=== PATIENT | male | born 1965 | race Caucasian/White ===

== ENCOUNTER 2016-02-16 11:52 | Outpatient (CLI) | payer OTHER ==
[~2016-02-16 11:52] MED LIST: ACETAMINOPHEN TAB 650MG DOSE (2X325MG) PO ONE; BACL10TA2 PO; BENA25CA2 PO; CIPR500T89 PO; ENTO3CAP5 PO; FLAG500T PO; GILE1CAP PO; IMOD2TAB16 PO; IMUR50TA PO; MULTCAP PO; PENT500C PO; PROBCAP4 PO; SIME180C PO; TYLE650T30 PO; VIAG100T PO; VITA100037 PO; diphenhydrAMINE 25 MG CAP PO ONE; diphenhydrAMINE INJ 50MG/ML VIAL (J1200) IV PRN
[2016-02-16] MEDS ORDERED: HYDROCORTISONE 100 MG/2 ML VIAL (J1720) IV ONE (12:00)
[2016-02-16] MEDS ORDERED: VEDOLIZUMAB 300 MG in NS 250 ML IV ONE (12:00)
[2016-02-16] MEDS ORDERED: LORATADINE 10 MG TAB PO ONE (12:00)
[2016-02-16] MEDS ORDERED: ACETAMINOPHEN 325 MG TAB PO ONE (12:00)
== END 2016-02-16 13:15 | disposition home or self-care (01) ==
LOC: M INFU 11:52
PROVIDERS: ATTEND Internal Medicine
DX: K50.90 Crohn's disease, unspecified, without complications (principal)
CPT/HCPCS: 96413; J1720; J3380

== ENCOUNTER → 2016-03-30 | Outpatient (CLI) | payer OTHER ==
[~2016-03-30] MED LIST changes: -ACETAMINOPHEN TAB 650MG DOSE (2X325MG) PO ONE; -diphenhydrAMINE 25 MG CAP PO ONE; -diphenhydrAMINE INJ 50MG/ML VIAL (J1200) IV PRN
[2016-03-30 15:58] LABS: BASO % 0.3 % (0.0-1.0); EOS % 1.1 % (0.0-3.0); LARGE UNSTAINED CELL # 0.1 K/mm3 (0.0-0.4); LYMPH # 1.2 K/mm3 (1.5-4.5); MEAN CORPUSCULAR HEMOGLOBIN 32.6 pg (27.0-33.0); MEAN CORPUSCULAR VOLUME 95.9 fl (80.0-96.0); MONO # 0.4 K/mm3 (0.0-0.8); MONO % 7.8 % (0.0-5.0); NEUTROPHILS % 64.9 % (36.0-66.0); PLATELET COUNT, AUTOMATED 229 k/mm3 (150-450); RED CELL DISTRIBUTION WIDTH 13.3 % (11.5-14.5); WHITE BLOOD COUNT 4.7 K/mm3 (4.0-10.0)
[2016-03-30 16:18] LABS: ALBUMIN 4.1 GM/DL (3.2-5.2); ALBUMIN/GLOBULIN RATIO 1.37 (1.00-1.93); ALKALINE PHOSPHATASE 73 U/L (45-117); ALT/SGPT 30 U/L (12-78); ANION GAP 6 MEQ/L (8-16); AST/SGOT 18 U/L (15-37); BILIRUBIN,TOTAL 0.4 MG/DL (0.2-1.0); BLOOD UREA NITROGEN 16 MG/DL (7-18); CALCIUM LEVEL 8.8 MG/DL (8.5-10.1); CARBON DIOXIDE LEVEL 31 MEQ/L (21-32); CHLORIDE LEVEL 104 MEQ/L (98-107); CREATININE FOR GFR 0.89 MG/DL (0.70-1.30); GLOMERULAR FILTRATION RATE > 60.0 (>60); GLUCOSE, FASTING 94 MG/DL (70-105); POTASSIUM SERUM 4.8 MEQ/L (3.5-5.1); SODIUM LEVEL 141 MEQ/L (136-145); TOTAL PROTEIN 7.1 GM/DL (6.4-8.2)
== END ==
LOC: M WUC 13:31
PROVIDERS: ATTEND Physician Assistant
DX: K50.919 Crohn's disease, unspecified, with unspecified complications (principal)

== ENCOUNTER 2016-04-12 10:40 | Outpatient (CLI) | payer OTHER ==
[~2016-04-12] VITALS: Ht 188 cm; Wt 84.8 kg
[2016-04-12] MEDS ORDERED: diphenhydrAMINE INJ 50MG/ML VIAL (J1200) IV ONE (10:45)
[2016-04-12] MEDS ORDERED: LORATADINE 10 MG TAB PO ONE (10:45)
[2016-04-12] MEDS ORDERED: HYDROCORTISONE 100 MG/2 ML VIAL (J1720) IV ONE (10:45)
[2016-04-12] MEDS ORDERED: ACETAMINOPHEN TAB 650MG DOSE (2X325MG) PO ONE (11:00)
[2016-04-12] MEDS ORDERED: VEDOLIZUMAB 300 MG in NS 250 ML IV ONE (11:00)
== END 2016-04-12 12:10 | disposition home or self-care (01) ==
LOC: M INFU 10:40
PROVIDERS: ATTEND General Practice
DX: K50.90 Crohn's disease, unspecified, without complications (principal); Z79.899 Other long term (current) drug therapy
CPT/HCPCS: 96413; J1720; J3380

== ENCOUNTER 2016-06-07 08:18 | Outpatient (CLI) | payer OTHER ==
[~2016-06-07] VITALS: Ht 188 cm; Wt 84.8 kg
[2016-06-07] MEDS ORDERED: diphenhydrAMINE INJ 50MG/ML VIAL (J1200) IV PRN (08:30)
[2016-06-07] MEDS ORDERED: LORATADINE 10 MG TAB PO ONE (08:30)
[2016-06-07] MEDS ORDERED: VEDOLIZUMAB 300 MG in NS 250 ML IV ONE (08:30)
[2016-06-07] MEDS ORDERED: HYDROCORTISONE 100 MG/2 ML VIAL (J1720) IV ONE (08:30)
[2016-06-07] MEDS ORDERED: ACETAMINOPHEN 325 MG TAB PO ONE (08:30)
== END 2016-06-07 09:50 | disposition home or self-care (01) ==
LOC: M INFU 08:18
PROVIDERS: ATTEND Internal Medicine
DX: K50.90 Crohn's disease, unspecified, without complications (principal); Z79.899 Other long term (current) drug therapy
CPT/HCPCS: 36415; 82306; 96366; 96413; J1720; J3380

== ENCOUNTER → 2016-06-26 | Outpatient (CLI) | payer OTHER ==
[2016-06-26 16:47] LABS: BASO % 0.2 % (0.0-1.0); EOS # 0.1 K/mm3 (0.0-0.50); EOS % 1.8 % (0.0-3.0); LARGE UNSTAINED CELL # 0.2 K/mm3 (0.0-0.4); LARGE UNSTAINED CELL % 3.6 % (0.0-4.0); LYMPH # 1.1 K/mm3 (1.5-4.5); LYMPH % 22.7 % (24.0-44.0); MEAN CORPUSCULAR HEMOGLOBIN 33.1 pg (27.0-33.0); MEAN CORPUSCULAR HGB CONC 34.4 g/dl (32.0-36.5); MEAN CORPUSCULAR VOLUME 96.2 fl (80.0-96.0); MONO # 0.3 K/mm3 (0.0-0.8); MONO % 5.7 % (0.0-5.0); NEUTROPHILS # 3.2 K/mm3 (1.8-7.7); PLATELET COUNT, AUTOMATED 256 k/mm3 (150-450); RED CELL DISTRIBUTION WIDTH 13.3 % (11.5-14.5); WHITE BLOOD COUNT 4.8 K/mm3 (4.0-10.0)
== END ==
LOC: M WUC 13:25
PROVIDERS: ATTEND Physician Assistant
DX: K50.919 Crohn's disease, unspecified, with unspecified complications (principal)

== ENCOUNTER 2016-08-02 08:17 | Outpatient (CLI) | payer OTHER ==
[~2016-08-02 08:17] MED LIST changes: +ACETAMINOPHEN 325 MG TAB PO ONE; +CIPR-249 PO; -CIPR500T89 PO; +HYDROCORTISONE 100 MG/2 ML VIAL (J1720) IV ONE; -IMUR50TA PO; +IMUR50TA6 PO; +LORATADINE 10 MG TAB PO ONE; +VEDOLIZUMAB 300 MG in NS 250 ML IV ONE; -VITA100037 PO; +VITA100067 PO; +diphenhydrAMINE INJ 50MG/ML VIAL (J1200) IV PRN
== END 2016-08-02 09:30 | disposition home or self-care (01) ==
LOC: M INFU 08:17
PROVIDERS: ATTEND Internal Medicine
DX: K50.90 Crohn's disease, unspecified, without complications (principal); Z85.828 Personal history of other malignant neoplasm of skin; G35 Multiple sclerosis; Z91.048 Other nonmedicinal substance allergy status
CPT/HCPCS: 96413; J1720; J3380

== ENCOUNTER 2016-09-27 10:28 | Outpatient (CLI) | payer OTHER ==
[~2016-09-27] VITALS: Ht 188 cm; Wt 84.8 kg
[~2016-09-27 10:28] MED LIST changes: +diphenhydrAMINE 25 MG CAP PO PRN; -diphenhydrAMINE INJ 50MG/ML VIAL (J1200) IV PRN
== END 2016-09-27 11:30 | disposition home or self-care (01) ==
LOC: M INFU 10:28
PROVIDERS: ATTEND Internal Medicine
DX: K50.90 Crohn's disease, unspecified, without complications (principal); Z85.828 Personal history of other malignant neoplasm of skin; Z91.010 Allergy to peanuts; Z79.899 Other long term (current) drug therapy
CPT/HCPCS: 96413; J1720; J3380

== ENCOUNTER 2016-11-22 08:49 | Outpatient (CLI) | payer OTHER ==
[~2016-11-22] VITALS: Ht 188 cm; Wt 84.8 kg
[~2016-11-22 08:49] MED LIST changes: -ACETAMINOPHEN 325 MG TAB PO ONE; -HYDROCORTISONE 100 MG/2 ML VIAL (J1720) IV ONE; -LORATADINE 10 MG TAB PO ONE; -VEDOLIZUMAB 300 MG in NS 250 ML IV ONE; -diphenhydrAMINE 25 MG CAP PO PRN
[2016-11-22] MEDS: HYDROCORTISONE 100 MG/2 ML VIAL (J1720) IV ONE (09:17)
[2016-11-22] MEDS: ACETAMINOPHEN 325 MG TAB PO ONE (09:17)
[2016-11-22] MEDS: LORATADINE 10 MG TAB PO ONE (09:20)
[2016-11-22] MEDS: diphenhydrAMINE 25 MG CAP PO ONE (09:20)
[2016-11-22] MEDS: VEDOLIZUMAB 300 MG in NS 250 ML IV ONE (09:39)
== END 2016-11-22 10:15 | disposition home or self-care (01) ==
LOC: M INFU 08:49
PROVIDERS: ATTEND Internal Medicine
DX: K50.90 Crohn's disease, unspecified, without complications (principal); Z85.828 Personal history of other malignant neoplasm of skin; Z91.010 Allergy to peanuts; Z79.899 Other long term (current) drug therapy
CPT/HCPCS: 96413; J1720; J3380

== ENCOUNTER 2017-01-17 08:41 | Outpatient (CLI) | payer OTHER ==
[2017-01-17] MEDS ORDERED: VEDOLIZUMAB 300 MG in NS 250 ML IV ONE (08:45)
[2017-01-17] MEDS ORDERED: diphenhydrAMINE 25 MG CAP PO ONE (08:45)
[2017-01-17] MEDS ORDERED: ACETAMINOPHEN 325 MG TAB PO ONE (08:45)
[2017-01-17] MEDS ORDERED: HYDROCORTISONE 100 MG/2 ML VIAL (J1720) IV ONE (09:00)
[2017-01-17] MEDS ORDERED: LORATADINE 10 MG TAB PO ONE (09:00)
== END 2017-01-17 10:15 | disposition home or self-care (01) ==
LOC: M INFU 08:41
PROVIDERS: ATTEND Internal Medicine
DX: K50.90 Crohn's disease, unspecified, without complications (principal); G35 Multiple sclerosis; Z85.828 Personal history of other malignant neoplasm of skin; Z91.018 Allergy to other foods; Z79.899 Other long term (current) drug therapy
CPT/HCPCS: 96365; J1720; J3380

== ENCOUNTER 2017-03-14 08:43 | Outpatient (CLI) | payer OTHER ==
[2017-03-14] MEDS ORDERED: diphenhydrAMINE 25 MG CAP PO ×2 (08:45)
[2017-03-14] MEDS ORDERED: LORATADINE 10 MG TAB PO ×2 (08:45)
[2017-03-14] MEDS: ACETAMINOPHEN 325 MG TAB PO ×2 (09:15)
[2017-03-14] MEDS: VEDOLIZUMAB 300 MG in NS 250 ML IV (09:15)
[2017-03-14] MEDS: HYDROCORTISONE 100 MG/2 ML VIAL (J1720) IV ×2 (09:15)
[2017-03-14 09:20] LABS: BASO % 0.2 % (0.0-1.0); EOS # 0.1 10^3/uL (0.0-0.50); HEMOGLOBIN 13.8 g/dl (14.0-18.0); IMMATURE GRANULOCYTE % 0.4 % (0-0); LYMPH # 0.8 10^3/uL (1.5-4.5); LYMPH % 17.2 % (24.0-44.0); MEAN CORPUSCULAR HEMOGLOBIN 31.4 pg (27.0-33.0); MEAN CORPUSCULAR HGB CONC 34.5 g/dl (32.0-36.5); MEAN CORPUSCULAR VOLUME 91.1 fl (80.0-96.0); MONO # 0.3 10^3/uL (0.0-0.8); MONO % 6.3 % (0.0-5.0); NEUTROPHILS # 3.6 10^3/uL (1.8-7.7); NEUTROPHILS % 74.9 % (36.0-66.0); PLATELET COUNT, AUTOMATED 236 10^3/uL (150-450); RED BLOOD COUNT 4.39 10^6/uL (4.30-6.10); RED CELL DISTRIBUTION WIDTH 12.8 % (11.5-14.5); WHITE BLOOD COUNT 4.8 10^3/uL (4.0-10.0)
[2017-03-14 11:05] LABS: ALBUMIN 4.1 GM/DL (3.2-5.2); ALBUMIN/GLOBULIN RATIO 1.32 (1.00-1.93); ALKALINE PHOSPHATASE 60 U/L (45-117); ALT/SGPT 21 U/L (12-78); ANION GAP 5 MEQ/L (8-16); AST/SGOT 12 U/L (7-37); BILIRUBIN,TOTAL 0.3 MG/DL (0.2-1.0); BLOOD UREA NITROGEN 20 MG/DL (7-18); C REACTIVE PROTEIN QUANTITATIV < 0.30 MG/DL (0.00-0.30); CALCIUM LEVEL 8.5 MG/DL (8.5-10.1); CARBON DIOXIDE LEVEL 31 MEQ/L (21-32); CHLORIDE LEVEL 105 MEQ/L (98-107); GLOMERULAR FILTRATION RATE > 60.0 (>56); GLUCOSE, FASTING 89 MG/DL (70-100); POTASSIUM SERUM 4.7 MEQ/L (3.5-5.1); SODIUM LEVEL 141 MEQ/L (136-145); TOTAL PROTEIN 7.2 GM/DL (6.4-8.2)
== END 2017-03-14 10:20 | disposition home or self-care (01) ==
LOC: M INFU 08:43
DX: K50.90 Crohn's disease, unspecified, without complications (principal); Z79.899 Other long term (current) drug therapy
CPT/HCPCS: J1720

== ENCOUNTER 2017-07-04 08:46 | Outpatient (CLI) | payer OTHER ==
[2017-07-04] MEDS: LORATADINE 10 MG TAB PO (09:00)
[2017-07-04] MEDS: ACETAMINOPHEN 325 MG TAB PO (09:19)
[2017-07-04] MEDS: HYDROCORTISONE 100 MG/2 ML VIAL (J1720) IV (09:20)
[2017-07-04] MEDS: diphenhydrAMINE 25 MG CAP PO (09:23)
[2017-07-04] MEDS: VEDOLIZUMAB 300 MG in NS 250 ML IV (09:27)
== END 2017-07-04 10:00 | disposition home or self-care (01) ==
LOC: M INFU 08:46
DX: K50.90 Crohn's disease, unspecified, without complications (principal); G35 Multiple sclerosis; Z79.899 Other long term (current) drug therapy; Z91.018 Allergy to other foods; J30.81 Allergic rhinitis due to animal (cat) (dog) hair and dander
CPT/HCPCS: J1720

== ENCOUNTER 2017-08-29 08:19 | Outpatient (CLI) | payer OTHER ==
[2017-08-29] MEDS: diphenhydrAMINE 25 MG CAP PO ×3 (08:41→10:10)
[2017-08-29] MEDS: HYDROCORTISONE 100 MG/2 ML VIAL (J1720) IV (08:42)
[2017-08-29] MEDS: ACETAMINOPHEN 325 MG TAB PO (08:46)
[2017-08-29] MEDS: VEDOLIZUMAB 300 MG in NS 250 ML IV (08:48)
[2017-08-29] MEDS: LORATADINE 10 MG TAB PO (08:58)
== END 2017-08-29 09:25 | disposition home or self-care (01) ==
LOC: M INFU 08:19
DX: K50.90 Crohn's disease, unspecified, without complications (principal); Z79.899 Other long term (current) drug therapy; Z91.018 Allergy to other foods; J30.81 Allergic rhinitis due to animal (cat) (dog) hair and dander; Z85.828 Personal history of other malignant neoplasm of skin
CPT/HCPCS: J1720

== ENCOUNTER → 2017-09-06 | Outpatient (REF) | payer OTHER | LOC: M LAB REF 18:44 | DX: I78.1 Nevus, non-neoplastic (principal) ==

== ENCOUNTER 2017-10-24 08:42 | Outpatient (CLI) | payer OTHER ==
[2017-10-24] MEDS: LORATADINE 10 MG TAB PO (08:45)
[2017-10-24] MEDS: HYDROCORTISONE 100 MG/2 ML VIAL (J1720) IV (09:00)
[2017-10-24] MEDS: diphenhydrAMINE 25 MG CAP PO (09:00)
[2017-10-24] MEDS: ACETAMINOPHEN 325 MG TAB PO (09:00)
[2017-10-24] MEDS: VEDOLIZUMAB 300 MG in NS 250 ML IV (09:24)
[2017-10-24 10:09] LABS: BASO % 0.2 % (0.0-1.0); EOS % 0.6 % (0.0-3.0); HEMATOCRIT 41.1 % (42.0-52.0); IMMATURE GRANULOCYTE % 0.4 % (0-3.0); LYMPH # 0.6 10^3/uL (1.5-4.5); MEAN CORPUSCULAR HGB CONC 34.1 g/dl (32.0-36.5); MEAN CORPUSCULAR VOLUME 91.1 fl (80.0-96.0); MONO # 0.3 10^3/uL (0.0-0.8); NEUTROPHILS # 4.3 10^3/uL (1.8-7.7); NEUTROPHILS % 80.8 % (36.0-66.0); PLATELET COUNT, AUTOMATED 248 10^3/uL (150-450); RED BLOOD COUNT 4.51 10^6/uL (4.30-6.10); RED CELL DISTRIBUTION WIDTH 12.6 % (11.5-14.5); WHITE BLOOD COUNT 5.3 10^3/uL (4.0-10.0)
[2017-10-24 10:40] LABS: ALBUMIN 4.2 GM/DL (3.2-5.2); ALKALINE PHOSPHATASE 65 U/L (45-117); ALT/SGPT 20 U/L (12-78); ANION GAP 8 MEQ/L (8-16); AST/SGOT 11 U/L (7-37); BILIRUBIN,TOTAL 0.4 MG/DL (0.2-1.0); BLOOD UREA NITROGEN 10 MG/DL (7-18); C REACTIVE PROTEIN QUANTITATIV < 0.30 MG/DL (0.00-0.30); CALCIUM LEVEL 8.9 MG/DL (8.5-10.1); CARBON DIOXIDE LEVEL 28 MEQ/L (21-32); CHLORIDE LEVEL 106 MEQ/L (98-107); CREATININE FOR GFR 0.88 MG/DL (0.70-1.30); GLOMERULAR FILTRATION RATE > 60.0 (>56); GLUCOSE, FASTING 111 MG/DL (70-100); POTASSIUM SERUM 4.9 MEQ/L (3.5-5.1); SODIUM LEVEL 142 MEQ/L (136-145); TOTAL PROTEIN 7.2 GM/DL (6.4-8.2)
== END 2017-10-24 10:05 | disposition home or self-care (01) ==
LOC: M INFU 08:42
DX: K50.90 Crohn's disease, unspecified, without complications (principal); Z79.899 Other long term (current) drug therapy; Z91.018 Allergy to other foods
CPT/HCPCS: J1720

== ENCOUNTER 2017-12-19 08:40 | Outpatient (CLI) | payer OTHER ==
[2017-12-19] MEDS: HYDROCORTISONE 100 MG/2 ML VIAL (J1720) IV (09:17)
[2017-12-19] MEDS: LORATADINE 10 MG TAB PO (09:17)
[2017-12-19] MEDS: ACETAMINOPHEN 325 MG TAB PO (09:17)
[2017-12-19] MEDS: VEDOLIZUMAB 300 MG in NS 250 ML IV (09:32)
[2017-12-19] MEDS: diphenhydrAMINE 25 MG CAP PO (09:33)
== END 2017-12-19 10:20 | disposition home or self-care (01) ==
LOC: M INFU 08:40
DX: K50.90 Crohn's disease, unspecified, without complications (principal); Z91.018 Allergy to other foods
CPT/HCPCS: J1720

== ENCOUNTER 2018-02-13 08:47 | Outpatient (CLI) | payer OTHER ==
[~2018-02-13] VITALS: Ht 188 cm; Wt 84.8 kg
[~2018-02-13 08:47] MED LIST changes: -IMUR50TA6 PO; +IMUR50TA7 PO
[2018-02-13 08:50] VITALS: BP 130/66
[2018-02-13] MEDS ORDERED: HYDROCORTISONE 100 MG/2 ML VIAL (J1720) IV ONE (09:00)
[2018-02-13] MEDS ORDERED: diphenhydrAMINE 25 MG CAP PO PRN (09:00)
[2018-02-13] MEDS ORDERED: VEDOLIZUMAB 300 MG in NS 250 ML IV ONE (09:00)
[2018-02-13] MEDS ORDERED: LORATADINE 10 MG TAB PO ONE (09:00)
[2018-02-13] MEDS ORDERED: ACETAMINOPHEN 325 MG TAB PO ONE (09:00)
[2018-02-13 09:33] LABS: BASO % 0.2 % (0.0-1.0); EOS % 0.6 % (0.0-3.0); HEMATOCRIT 38.2 % (42.0-52.0); HEMOGLOBIN 13.2 g/dl (13.5-17.5); LYMPH # 0.9 10^3/uL (1.5-4.5); LYMPH % 18.6 % (24.0-44.0); MEAN CORPUSCULAR HEMOGLOBIN 31.1 pg (27.0-33.0); MEAN CORPUSCULAR HGB CONC 34.6 g/dl (32.0-36.5); MEAN CORPUSCULAR VOLUME 89.9 fl (80.0-96.0); MONO # 0.4 10^3/uL (0.0-0.8); MONO % 8.3 % (0.0-5.0); NEUTROPHILS # 3.4 10^3/uL (1.8-7.7); NEUTROPHILS % 71.9 % (36.0-66.0); PLATELET COUNT, AUTOMATED 265 10^3/uL (150-450); RED BLOOD COUNT 4.25 10^6/uL (4.30-6.10); WHITE BLOOD COUNT 4.7 10^3/uL (4.0-10.0)
[2018-02-13 09:59] LABS: ALBUMIN 3.9 GM/DL (3.2-5.2); ALT/SGPT 21 U/L (12-78); BILIRUBIN,TOTAL 0.4 MG/DL (0.2-1.0); BLOOD UREA NITROGEN 19 MG/DL (7-18); C REACTIVE PROTEIN QUANTITATIV < 0.30 MG/DL (0.00-0.30); CALCIUM LEVEL 8.6 MG/DL (8.5-10.1); CARBON DIOXIDE LEVEL 24 MEQ/L (21-32); CHLORIDE LEVEL 108 MEQ/L (98-107); CREATININE FOR GFR 0.86 MG/DL (0.70-1.30); GLOMERULAR FILTRATION RATE > 60.0 (>56); GLUCOSE, FASTING 112 MG/DL (70-100); POTASSIUM SERUM 4.4 MEQ/L (3.5-5.1); SODIUM LEVEL 140 MEQ/L (136-145); TOTAL PROTEIN 6.9 GM/DL (6.4-8.2)
[2018-02-13 10:25] VITALS: BP 121/66
== END 2018-02-13 10:25 | disposition home or self-care (01) ==
LOC: M INFU 08:47
PROVIDERS: ATTEND Internal Medicine
DX: K50.90 Crohn's disease, unspecified, without complications (principal); Z91.018 Allergy to other foods
CPT/HCPCS: 80053; 85025; 86140; 96365; 96375; J1720; J3380

== ENCOUNTER 2018-04-10 08:49 | Outpatient (CLI) | payer OTHER ==
[~2018-04-10] VITALS: Ht 188 cm; Wt 84.8 kg
[~2018-04-10 08:49] MED LIST changes: +ACETAMINOPHEN 325 MG TAB PO ONE; +HYDROCORTISONE 100 MG/2 ML VIAL (J1720) IV ONE; +LORATADINE 10 MG TAB PO ONE; +VEDOLIZUMAB 300 MG in NS 250 ML IV ONE; +diphenhydrAMINE 25 MG CAP PO ONE
[2018-04-10 08:55] VITALS: BP 121/58
[2018-04-10 10:15] VITALS: BP 130/65
== END 2018-04-10 10:15 | disposition home or self-care (01) ==
LOC: M INFU 08:49
PROVIDERS: ATTEND Internal Medicine
DX: K50.90 Crohn's disease, unspecified, without complications (principal); Z91.018 Allergy to other foods
CPT/HCPCS: 96365; 96375; J1720; J3380

== ENCOUNTER 2018-06-05 08:44 | Outpatient (CLI) | payer OTHER ==
[~2018-06-05] VITALS: Ht 188 cm; Wt 84.8 kg
[~2018-06-05 08:44] MED LIST changes: -ACETAMINOPHEN 325 MG TAB PO ONE; -HYDROCORTISONE 100 MG/2 ML VIAL (J1720) IV ONE; +IMUR50TA10 PO; -IMUR50TA7 PO; -LORATADINE 10 MG TAB PO ONE; -VEDOLIZUMAB 300 MG in NS 250 ML IV ONE; -diphenhydrAMINE 25 MG CAP PO ONE
[2018-06-05] MEDS ORDERED: VEDOLIZUMAB 300 MG in NS 250 ML IV ONE (08:45)
[2018-06-05] MEDS ORDERED: ACETAMINOPHEN 325 MG TAB PO ONE (08:45)
[2018-06-05 08:50] VITALS: BP 122/72
[2018-06-05] MEDS ORDERED: HYDROCORTISONE 100 MG/2 ML VIAL (J1720) IV ONE (09:00)
[2018-06-05] MEDS ORDERED: LORATADINE 10 MG TAB PO ONE (09:00)
[2018-06-05] MEDS ORDERED: diphenhydrAMINE 25 MG CAP PO PRN (09:00)
[2018-06-05 10:20] VITALS: BP 121/68
--- NOTE | 2018-06-05 16:08 | CR.PDOC ---
General Date of Consultation: June 05, 2018 Consultation REASON FOR CONSULTATION/CHIEF COMPLAINT: Presented to [facility] for scheduled infusion of Entyvio at the infusion center HISTORY OF PRESENT ILLNESS: Patient is a 52-year-old male with a past medical history of multiple sclerosis and Crohns disease (Dx 2014 by Colonoscopy / Biopsy) who presented to the infusion center at the direction of his floatman from [facility] for infusion of Entyvio. Patient has been receiving this medication for the last 4 years at a frequency of every 8 weeks. He is reported that he has never experienced any problems in the past. Reports no allergies or any adverse reactions infusions. Patient denies headache, nausea, vomiting, chest pain, shortness of breath, palpitations, abdominal pain, constipation, diarrhea, discomfort with urination. Denies any fevers or chills in the last 2 weeks. Patient reports that his appetite is fine and denies any significant changes, weight. ALLERGIES: Please see below. HOME MEDICATIONS: Please see below. PAST MEDICAL HISTORY: Multiple sclerosis and Crohns disease (Dx 2014 by Colonoscopy / Biopsy) PAST SURGICAL HISTORY: Vasectomy Right knee surgery in 2017 Right shoulder surgery in 2016 FAMILY HISTORY: - Mother with history of breast cancer - Father with history of HTN SOCIAL HISTORY: - Denies the use of alcohol, tobacco or illicit drugs - Denies recent travel or sick contacts - Lives in [place] with and kids - Occupation; currently on disability REVIEW OF SYSTEMS: 10 point review systems complete, all negative otherwise stated in HPI PHYSICAL EXAMINATION: - Vitals: BP 122/72, HR 90, RR 16, Sat 99%RA, Temp 97.2F - General: Lying in bed, No acute distress, Speaking in full sentences, AAOx3 - HEENT: NC, AT, PERRLA, EOMI - CVS: RRR, +S1S2, - Murmurs / rubs / gallops - Lungs: Fair air entry bilaterally, Clear to auscultation, No wheezing / rales / rhonchi - Abdomen: Soft, Non-distended, Non-tender - Extremities: No lower extremity edema, No calf tenderness - Neuro: Moving all 4 extremities; right leg in brace - Skin: No visible rashes LABORATORY DATA: Please see below. ASSESSMENT/PLAN: Crohns disease (Dx 2014 by Colonoscopy / Biopsy) - Patient follows a floatman at [facility], [facility] [place] - Risks and benefits of infusion have been discussed by outpatient provider - I have again reiterated the risks and benefits with the patient - Patient agrees and accepts the risks - As per referring provider protocol and providing service for infusion center orders have been reviewed and continued - Continue with Entyvio infusion and pre-medications as per outpatient provider; orders have been reviewed Multiple sclerosis - Patient reports that he is not taking any medications for this at this time Continue care as per protocol as infusion center Vital Signs/I&O Vital Signs Date Time Temp Pulse Resp B/P (MAP) Pulse Ox O2 Delivery O2 Flow Rate FiO2 06/05/18 10:20 97.9 64 18 121/68 (85) 100 Allergies Coded Allergies: Nut Tree (Verified Allergy, Unknown, 12/21/15) Home Medications Scheduled Azathioprine (Imuran) 50 Mg Tab, 50 MG PO DAILY, (Reported) Lactobacillus Acidophilus (Probiotic) 1 Cap Cap, 1 CAP PO ASDIRECTED, (Reported) Multivitamin (Multivitamins) 1 Cap Cap, 1 CAP PO DAILY, (Reported) Vitamin D (Vitamin D) 1,000 Unit Cap, 1,000 UNIT PO DAILY, (Reported) Scheduled PRN Acetaminophen (Tylenol 8 Hour) 650 Mg Tab, 650 MG PO Q6HP PRN for PAIN / FEVER, (Reported) Baclofen (Baclofen) 10 Mg Tab, 10 MG PO TIDP PRN for SPASMS, (Reported) Sildenafil Citrate (Viagra) 100 Mg Tab, 100 MG PO PRN PRN for SEE LABEL COMMENTS, (Reported) NU STALEY MD June 05, 2018 16:08
== END 2018-06-05 10:20 | disposition home or self-care (01) ==
LOC: M INFU 08:44
PROVIDERS: ATTEND Internal Medicine
DX: K50.00 Crohn's disease of small intestine without complications (principal); G35 Multiple sclerosis
CPT/HCPCS: 96365; 96375; J1720; J3380

== ENCOUNTER 2018-07-31 08:36 | Outpatient (CLI) | payer OTHER ==
[~2018-07-31] VITALS: Ht 185.4 cm; Wt 84.8 kg
[2018-07-31 08:45] VITALS: BP 132/67
[2018-07-31] MEDS ORDERED: ACETAMINOPHEN 325 MG TAB PO ONE (08:45)
[2018-07-31] MEDS ORDERED: VEDOLIZUMAB 300 MG in NS 250 ML IV ONE (08:45)
[2018-07-31] MEDS ORDERED: diphenhydrAMINE 25 MG CAP PO PRN (08:45)
[2018-07-31] MEDS ORDERED: HYDROCORTISONE 100 MG/2 ML VIAL (J1720) IV ONE (08:45)
[2018-07-31] MEDS ORDERED: LORATADINE 10 MG TAB PO ONE (08:45)
[2018-07-31 09:28] LABS: BASO % 0.2 % (0.0-1.0); EOS % 0.4 % (0.0-3.0); HEMATOCRIT 41.2 % (42.0-52.0); HEMOGLOBIN 14.4 g/dl (13.5-17.5); LYMPH # 0.8 10^3/uL (1.5-4.5); LYMPH % 17.1 % (24.0-44.0); MEAN CORPUSCULAR HEMOGLOBIN 31.6 pg (27.0-33.0); MEAN CORPUSCULAR VOLUME 90.5 fl (80.0-96.0); MONO # 0.4 10^3/uL (0.0-0.8); MONO % 7.5 % (0.0-5.0); NEUTROPHILS # 3.6 10^3/uL (1.8-7.7); NEUTROPHILS % 74.4 % (36.0-66.0); PLATELET COUNT, AUTOMATED 271 10^3/uL (150-450); RED BLOOD COUNT 4.55 10^6/uL (4.30-6.10); WHITE BLOOD COUNT 4.8 10^3/uL (4.0-10.0)
[2018-07-31 09:54] LABS: ALBUMIN 3.8 GM/DL (3.2-5.2); ALT/SGPT 18 U/L (12-78); BILIRUBIN,TOTAL 0.4 MG/DL (0.2-1.0); BLOOD UREA NITROGEN 15 MG/DL (7-18); CALCIUM LEVEL 8.9 MG/DL (8.5-10.1); CARBON DIOXIDE LEVEL 28 MEQ/L (21-32); CHLORIDE LEVEL 107 MEQ/L (98-107); CHOLESTEROL LEVEL 169 MG/DL (<200); CHOLESTEROL RISK RATIO 2.449 (<5); CREATININE FOR GFR 0.98 MG/DL (0.70-1.30); GLOMERULAR FILTRATION RATE > 60.0 (>56); GLUCOSE, FASTING 114 MG/DL (70-100); HDL CHOLESTEROL 69 MG/DL (>40); LDL CHOLESTEROL 82 MG/DL (<100); NON-HDL-C 100 MG/DL; SODIUM LEVEL 141 MEQ/L (136-145); TOTAL PROTEIN 7.3 GM/DL (6.4-8.2); TRIGLYCERIDES LEVEL 91 MG/DL (<150)
[2018-07-31 10:00] VITALS: BP 112/58
[2018-07-31 10:18] LABS: TOTAL 25(OH) VITAMIN D 49.4 NG/ML (30.0-100.0)
== END 2018-07-31 10:00 | disposition home or self-care (01) ==
LOC: M INFU 08:36
PROVIDERS: ATTEND Physician Assistant
DX: K50.90 Crohn's disease, unspecified, without complications (principal); Z12.5 Encounter for screening for malignant neoplasm of prostate; Z13.220 Encounter for screening for lipoid disorders; K55.9 Vascular disorder of intestine, unspecified; G35 Multiple sclerosis
CPT/HCPCS: 36592; 80053; 80061; 82306; 85025; 96365; 96375; G0103; J1720; J3380

== ENCOUNTER 2018-08-28 16:17 | Outpatient (CLI) | payer OTHER ==
[~2018-08-28] VITALS: Ht 184.9 cm; Wt 84.8 kg
[2018-08-28 16:20] VITALS: BP 127/72
[2018-08-28] MEDS: methylPREDNISolone 1,000 MG, VIAL MATE ADAPTER 1 EACH in D5W 250 ML IV ONE (16:39)
[2018-08-28 17:50] VITALS: BP 131/72
== END 2018-08-28 17:50 | disposition home or self-care (01) ==
LOC: M INFU 16:17
PROVIDERS: ATTEND Psychiatry & Neurology Neurology
DX: G35 Multiple sclerosis (principal)
CPT/HCPCS: 96365; J2930

== ENCOUNTER 2018-08-29 15:48 | Outpatient (CLI) | payer OTHER ==
[~2018-08-29] VITALS: Ht 188 cm; Wt 89.8 kg
[2018-08-29 15:55] VITALS: BP 106/67
[2018-08-29] MEDS ORDERED: methylPREDNISolone 1,000 MG, VIAL MATE ADAPTER 1 EACH in D5W 250 ML IV ONE (16:00)
[2018-08-29 17:15] VITALS: BP 129/75
== END 2018-08-29 17:15 | disposition home or self-care (01) ==
LOC: M INFU 15:48
PROVIDERS: ATTEND Psychiatry & Neurology Neurology
DX: G35 Multiple sclerosis (principal)
CPT/HCPCS: 96365; J2930

== ENCOUNTER 2018-08-30 15:50 | Outpatient (CLI) | payer OTHER ==
[~2018-08-30] VITALS: Ht 185.4 cm; Wt 84.8 kg
[~2018-08-30 15:50] MED LIST changes: +methylPREDNISolone 1,000 MG, VIAL MATE ADAPTER 1 EACH in D5W 250 ML IV ONE
[2018-08-30 15:55] VITALS: BP 130/58
[2018-08-30] MEDS ORDERED: methylPREDNISolone 1,000 MG, VIAL MATE ADAPTER 1 EACH in D5W 250 ML IV ONE (16:00)
[2018-08-30 17:15] VITALS: BP_SYST 114; BP_SYST 130; BP_DIAS 58; BP_DIAS 71
== END 2018-08-30 17:15 | disposition home or self-care (01) ==
LOC: M INFU 15:50
PROVIDERS: ATTEND Psychiatry & Neurology Neurology
DX: G35 Multiple sclerosis (principal)
CPT/HCPCS: 96365; J2930

== ENCOUNTER 2018-09-25 08:42 | Outpatient (CLI) | payer OTHER ==
[~2018-09-25] VITALS: Ht 188 cm; Wt 84.8 kg
[~2018-09-25 08:42] MED LIST changes: -methylPREDNISolone 1,000 MG, VIAL MATE ADAPTER 1 EACH in D5W 250 ML IV ONE
[2018-09-25 08:45] VITALS: BP 132/61
[2018-09-25] MEDS: ACETAMINOPHEN 325 MG TAB PO ONE (09:04)
[2018-09-25] MEDS: LORATADINE 10 MG TAB PO ONE (09:04)
[2018-09-25] MEDS: HYDROCORTISONE 100 MG/2 ML VIAL (J1720) IV ONE (09:05)
[2018-09-25] MEDS: diphenhydrAMINE 25 MG CAP PO ONE (09:05)
[2018-09-25] MEDS: VEDOLIZUMAB 300 MG in NS 250 ML IV ONE (09:28)
[2018-09-25 10:10] VITALS: BP 123/68
== END 2018-09-25 14:15 | disposition home or self-care (01) ==
LOC: M INFU 08:42
PROVIDERS: ATTEND Physician Assistant
DX: K50.00 Crohn's disease of small intestine without complications (principal)
CPT/HCPCS: 96365; J1720; J3380

== ENCOUNTER 2018-11-20 08:38 | Outpatient (CLI) | payer OTHER ==
[~2018-11-20] VITALS: Ht 188 cm; Wt 84.8 kg
[2018-11-20 08:45] VITALS: BP 137/85
[2018-11-20] MEDS ORDERED: diphenhydrAMINE 25 MG CAP PO ONE (09:00)
[2018-11-20] MEDS ORDERED: VEDOLIZUMAB 300 MG in NS 250 ML IV ONE (10:00)
[2018-11-20] MEDS ORDERED: ACETAMINOPHEN TAB 650MG DOSE (2X325MG) PO ONE (10:00)
[2018-11-20] MEDS ORDERED: HYDROCORTISONE 100 MG/2 ML VIAL (J1720) IV ONE (10:00)
[2018-11-20] MEDS ORDERED: diphenhydrAMINE 12.5MG/5ML ELIXIR UDC PO PRN (10:00)
[2018-11-20] MEDS ORDERED: LORATADINE 10 MG TAB PO ONE (10:00)
[2018-11-20 10:05] VITALS: BP 138/84
== END 2018-11-20 10:05 | disposition home or self-care (01) ==
LOC: M INFU 08:38
PROVIDERS: ATTEND Physician Assistant
DX: K50.00 Crohn's disease of small intestine without complications (principal); Z91.018 Allergy to other foods
CPT/HCPCS: 96365; 96375; J1720; J3380

== ENCOUNTER → 2019-03-24 | Outpatient (REF) | payer OTHER | LOC: M LAB REF 16:48 | PROVIDERS: ATTEND Family Medicine | DX: L03.011 Cellulitis of right finger (principal) ==

== ENCOUNTER → 2019-03-27 | Outpatient (REF) | payer OTHER | LOC: M LAB REF 13:50 | PROVIDERS: ATTEND Family Medicine | DX: L03.011 Cellulitis of right finger (principal) ==

== ENCOUNTER → 2019-05-21 | Outpatient (REF) | payer OTHER ==
[2019-05-21 17:38] LABS: BASO % 0.8 % (0.0-1.0); EOS % 0.8 % (0.0-3.0); HEMATOCRIT 36.8 % (42.0-52.0); HEMOGLOBIN 12.2 g/dl (13.5-17.5); LYMPH # 0.8 10^3/uL (1.5-5.0); LYMPH % 15.8 % (24.0-44.0); MEAN CORPUSCULAR HEMOGLOBIN 31.3 pg (27.0-33.0); MEAN CORPUSCULAR HGB CONC 33.2 g/dl (32.0-36.5); MEAN CORPUSCULAR VOLUME 94.4 fl (80.0-96.0); MONO # 0.7 10^3/uL (0.0-0.8); MONO % 12.5 % (0.0-5.0); NEUTROPHILS # 3.7 10^3/uL (1.5-8.5); NEUTROPHILS % 69.3 % (36.0-66.0); PLATELET COUNT, AUTOMATED 295 10^3/uL (150-450); WHITE BLOOD COUNT 5.3 10^3/uL (4.0-10.0)
== END ==
LOC: M LAB REF 16:55
PROVIDERS: ATTEND Family Medicine
DX: G35 Multiple sclerosis (principal); Z52.9 Donor of unspecified organ or tissue

== ENCOUNTER → 2019-07-31 | Outpatient (CLI) | payer OTHER ==
[2019-07-31 18:02] LABS: BASO % 0.3 % (0.0-1.0); EOS # 0.1 10^3/uL (0.0-0.5); EOS % 1.1 % (0.0-3.0); LYMPH # 0.8 10^3/uL (1.5-5.0); LYMPH % 12.6 % (24.0-44.0); MEAN CORPUSCULAR HEMOGLOBIN 31.8 pg (27.0-33.0); MEAN CORPUSCULAR HGB CONC 33.3 g/dl (32.0-36.5); MEAN CORPUSCULAR VOLUME 95.4 fl (80.0-96.0); MONO # 0.5 10^3/uL (0.0-0.8); MONO % 8.5 % (0.0-5.0); NEUTROPHILS # 4.9 10^3/uL (1.5-8.5); PLATELET COUNT, AUTOMATED 251 10^3/uL (150-450); RED BLOOD COUNT 4.09 10^6/uL (4.30-6.10); WHITE BLOOD COUNT 6.4 10^3/uL (4.0-10.0)
== END ==
LOC: M WUC 13:45
PROVIDERS: ATTEND Family Medicine
DX: G35 Multiple sclerosis (principal)

== ENCOUNTER → 2019-09-17 | Outpatient (REF) | payer OTHER ==
[2019-10-20 10:01] LABS: BASO % 0.2 % (0.0-1.0); EOS % 0.7 % (0.0-3.0); HEMATOCRIT 40.4 % (42.0-52.0); HEMOGLOBIN 13.7 g/dl (13.5-17.5); LYMPH # 0.7 10^3/uL (1.5-5.0); LYMPH % 15.5 % (24.0-44.0); MEAN CORPUSCULAR HEMOGLOBIN 30.9 pg (27.0-33.0); MEAN CORPUSCULAR HGB CONC 33.9 g/dl (32.0-36.5); MEAN CORPUSCULAR VOLUME 91.2 fl (80.0-96.0); MONO # 0.4 10^3/uL (0.0-0.8); MONO % 8.4 % (0.0-5.0); NEUTROPHILS # 3.4 10^3/uL (1.5-8.5); NEUTROPHILS % 74.8 % (36.0-66.0); PLATELET COUNT, AUTOMATED 252 10^3/uL (150-450); RED BLOOD COUNT 4.43 10^6/uL (4.30-6.10); WHITE BLOOD COUNT 4.5 10^3/uL (4.0-10.0)
[2019-11-02 06:41] LABS: ALBUMIN 4.1 GM/DL (3.2-5.2); ALT/SGPT 34 U/L (12-78); BILIRUBIN,TOTAL 0.3 MG/DL (0.2-1.0); BLOOD UREA NITROGEN 13 MG/DL (7-18); CALCIUM LEVEL 9.1 MG/DL (8.5-10.1); CARBON DIOXIDE LEVEL 27 MEQ/L (21-32); CHLORIDE LEVEL 107 MEQ/L (98-107); CHOLESTEROL LEVEL 192 MG/DL (<200); CHOLESTEROL RISK RATIO 2.865 (<5); CREATININE FOR GFR 0.92 MG/DL (0.70-1.30); FREE T4 1.06 NG/DL (0.76-1.46); GLOMERULAR FILTRATION RATE > 60.0 (>56); GLUCOSE, FASTING 97 MG/DL (70-100); HDL CHOLESTEROL 67 MG/DL (>40); LDL CHOLESTEROL 111 MG/DL (<100); NON-HDL-C 125 MG/DL; POTASSIUM SERUM 4.1 MEQ/L (3.5-5.1); SODIUM LEVEL 139 MEQ/L (136-145); THYROID STIMULATING HORMONE 0.844 uIU/ML (0.358-3.740); TOTAL 25(OH) VITAMIN D 66.8 NG/ML (30.0-100.0); TOTAL PROTEIN 7.7 GM/DL (6.4-8.2); TRIGLYCERIDES LEVEL 68 MG/DL (<150)
== END ==
LOC: M WUC 10:18
PROVIDERS: ATTEND Family Medicine
DX: E55.9 Vitamin D deficiency, unspecified (principal); Z13.220 Encounter for screening for lipoid disorders; Z13.29 Encounter for screening for other suspected endocrine disorder; Z13.0 Encounter for screening for diseases of the blood and blood-forming organs and certain disorders involving the immune mechanism

== ENCOUNTER → 2019-11-14 | Outpatient (CLI) | payer OTHER | LOC: M WUC 10:57 | PROVIDERS: ATTEND Internal Medicine Cardiovascular Disease | DX: I49.3 Ventricular premature depolarization (principal) ==

== ENCOUNTER → 2020-02-05 | Outpatient (CLI) | payer OTHER ==
[2020-02-05 16:01] LABS: BASO % 0.6 % (0.0-1.0); EOS # 0.2 10^3/uL (0.0-0.5); EOS % 3.5 % (0.0-3.0); HEMATOCRIT 43.2 % (42.0-52.0); HEMOGLOBIN 14.1 g/dl (13.5-17.5); LYMPH # 0.9 10^3/uL (1.5-5.0); LYMPH % 13.6 % (24.0-44.0); MEAN CORPUSCULAR HGB CONC 32.6 g/dl (32.0-36.5); MEAN CORPUSCULAR VOLUME 91.9 fl (80.0-96.0); MONO # 0.6 10^3/uL (0.0-0.8); MONO % 8.6 % (0.0-5.0); NEUTROPHILS # 4.8 10^3/uL (1.5-8.5); NEUTROPHILS % 72.9 % (36.0-66.0); PLATELET COUNT, AUTOMATED 307 10^3/uL (150-450); WHITE BLOOD COUNT 6.6 10^3/uL (4.0-10.0)
== END ==
LOC: M WUC 11:05
PROVIDERS: ATTEND Family Medicine
DX: G35 Multiple sclerosis (principal)

== ENCOUNTER 2021-10-03 10:25 | Outpatient (CLI) | payer OTHER ==
[~2021-10-03] VITALS: Ht 188 cm; Wt 93.1 kg
[2021-10-03 10:25] VITALS: BP 147/100
[~2021-10-03 10:25] MED LIST changes: -SIME180C PO; +SIME180C25 PO
[2021-10-03] MEDS ORDERED: methylPREDNISolone 1,000 MG, VIAL MATE ADAPTER 1 EACH in NS 250 ML IV ONE (10:30)
[2021-10-03 11:40] VITALS: BP 137/78
== END 2021-10-03 11:40 | disposition home or self-care (01) ==
LOC: M INFU 10:25
PROVIDERS: ATTEND Nurse Practitioner Adult Health
DX: G35 Multiple sclerosis (principal); Z91.018 Allergy to other foods
CPT/HCPCS: 96365; J2930

== ENCOUNTER 2021-11-02 10:35 | Outpatient (CLI) | payer OTHER ==
[~2021-11-02] VITALS: Ht 188 cm; Wt 93.1 kg
[~2021-11-02 10:35] MED LIST changes: +methylPREDNISolone 1,000 MG, VIAL MATE ADAPTER 1 EACH in NS 250 ML IV ONE
[2021-11-02 11:00] VITALS: BP 153/72
[2021-11-02 11:50] VITALS: BP 118/64
== END 2021-11-02 11:50 | disposition home or self-care (01) ==
LOC: M INFU 10:35
PROVIDERS: ATTEND Nurse Practitioner Adult Health
DX: G35 Multiple sclerosis (principal); Z91.018 Allergy to other foods
CPT/HCPCS: 96365; J2930

== ENCOUNTER 2021-12-01 10:00 | Outpatient (CLI) | payer OTHER ==
[2021-12-01 10:16] VITALS: BP 149/87
[2021-12-01 11:21] VITALS: BP 145/85
== END 2021-12-01 11:25 | disposition home or self-care (01) ==
LOC: M INFU 10:00
PROVIDERS: ATTEND Nurse Practitioner Adult Health
DX: G35 Multiple sclerosis (principal); Z91.048 Other nonmedicinal substance allergy status
CPT/HCPCS: 96365; J2930

== ENCOUNTER 2022-01-02 11:00 | Outpatient (CLI) | payer OTHER ==
[~2022-01-02] VITALS: Ht 152.4 cm; Wt 93.1 kg
[2022-01-02 11:00] VITALS: BP 128/78
[2022-01-02 12:15] VITALS: BP 136/67
== END 2022-01-02 12:15 | disposition home or self-care (01) ==
LOC: M INFU 11:00
PROVIDERS: ATTEND Nurse Practitioner Adult Health
DX: G35 Multiple sclerosis (principal)
CPT/HCPCS: 96365; J2930

== ENCOUNTER → 2022-12-21 | Outpatient (CLI) | payer OTHER ==
[~2022-12-21] MED LIST changes: -methylPREDNISolone 1,000 MG, VIAL MATE ADAPTER 1 EACH in NS 250 ML IV ONE
[2022-12-21 12:23] LABS: BASO % 0.3 % (0.0-1.0); EOS # 0.1 10^3/uL (0.0-0.5); EOS % 0.7 % (0.0-3.0); HEMATOCRIT 41.8 % (42.0-52.0); LYMPH # 1.4 10^3/uL (1.5-5.0); LYMPH % 18.7 % (24.0-44.0); MEAN CORPUSCULAR HEMOGLOBIN 30.7 pg (27.0-33.0); MEAN CORPUSCULAR HGB CONC 33.5 g/dl (32.0-36.5); MEAN CORPUSCULAR VOLUME 91.7 fl (80.0-96.0); MONO # 0.4 10^3/uL (0.0-0.8); MONO % 5.9 % (2.0-8.0); NEUTROPHILS # 5.5 10^3/uL (1.5-8.5); NEUTROPHILS % 73.7 % (36.0-66.0); PLATELET COUNT, AUTOMATED 288 10^3/uL (150-450); RED BLOOD COUNT 4.56 10^6/uL (4.30-6.10); WHITE BLOOD COUNT 7.4 10^3/uL (4.0-10.0)
[2022-12-21 12:52] LABS: ALBUMIN 3.7 G/DL (3.2-5.2); ALKALINE PHOSPHATASE 94 U/L (46-116); ALT/SGPT 22 U/L (7.0-40); AST/SGOT 13 U/L (<34); BILIRUBIN,TOTAL 0.5 MG/DL (0.3-1.2); BLOOD UREA NITROGEN 14 MG/DL (9-23); CALCIUM LEVEL 9.1 MG/DL (8.5-10.1); CARBON DIOXIDE LEVEL 29 MMOL/L (20-31); CHLORIDE LEVEL 104 MMOL/L (98-107); CHOLESTEROL LEVEL 170 MG/DL (<200); CHOLESTEROL RISK RATIO 3.27 (<5); CREATININE FOR GFR 0.77 MG/DL (0.70-1.30); FREE T4 1.26 NG/DL (0.89-1.76); GLOMERULAR FILTRATION RATE > 60.0 (>56); GLUCOSE, FASTING 103 MG/DL (60-100); HDL CHOLESTEROL 51.9 MG/DL (>40); LDL CHOLESTEROL 99.7 MG/DL (<100); NON-HDL-C 118.1 MG/DL; POTASSIUM SERUM 4.7 MMOL/L (3.5-5.1); SODIUM LEVEL 138 MMOL/L (136-145); THYROID STIMULATING HORMONE 1.237 uIU/ML (0.55-4.78); TOTAL 25(OH) VITAMIN D 54.4 NG/ML (20.0-100.0); TOTAL PROTEIN 7.1 G/DL (5.7-8.2); TRIGLYCERIDES LEVEL 92 MG/DL (<150)
== END ==
LOC: M WUC 09:26
PROVIDERS: ATTEND Family Medicine
DX: E55.9 Vitamin D deficiency, unspecified (principal); Z13.220 Encounter for screening for lipoid disorders; Z13.0 Encounter for screening for diseases of the blood and blood-forming organs and certain disorders involving the immune mechanism; Z13.29 Encounter for screening for other suspected endocrine disorder

== ENCOUNTER → 2022-12-21 | Outpatient (CLI) | payer OTHER ==
[2022-12-21 12:51] LABS: TOTAL 25(OH) VITAMIN D 58.5 NG/ML (20.0-100.0)
== END ==
LOC: M WUC 09:37
DX: K50.90 Crohn's disease, unspecified, without complications (principal)

== ENCOUNTER → 2023-06-07 | Outpatient (REF) | payer OTHER ==
[2023-06-07 12:17] LABS: APPEARANCE, URINE CLEAR (CLEAR); BACTERIA, URINE AUTO NEGATIVE (NEGATIVE); BILIRUBIN, URINE AUTO NEGATIVE (NEGATIVE); BLOOD, URINE BLOOD NEGATIVE (NEGATIVE); COLOR, URINE YELLOW (YELLOW); GLUCOSE, URINE (UA) AUTO NEGATIVE (NEGATIVE); KETONE, URINE AUTO NEGATIVE (NEGATIVE); LEUKOCYTE ESTERASE, URINE AUTO NEGATIVE (NEGATIVE); MUCUS, URINE SMALL (NEGATIVE); NITRITE, URINE AUTO NEGATIVE (NEGATIVE); PROTEIN, URINE AUTO NEGATIVE (NEGATIVE); RBC, URINE AUTO 1 /HPF (0-3); SPECIFIC GRAVITY URINE AUTO 1.012 (1.002-1.035); SQUAMOUS EPITHELIAL CELL UR AU 0 /HPF (0-6); UROBILINOGEN, URINE AUTO 0.2 mg/dL (0.0-2.0); WBC, URINE AUTO 2 /HPF (0-3)
== END ==
LOC: M LAB REF 11:48
PROVIDERS: ATTEND Family Medicine
DX: R79.82 Elevated C-reactive protein (CRP) (principal)

== ENCOUNTER → 2023-06-08 | Outpatient (CLI) | payer OTHER | LOC: M WUC 15:26 | PROVIDERS: ATTEND Family Medicine | DX: R79.82 Elevated C-reactive protein (CRP) (principal) ==

== ENCOUNTER → 2023-06-15 | Outpatient (CLI) | payer OTHER ==
[2023-06-15 10:47] LABS: BLOOD UREA NITROGEN 15 MG/DL (9-23); CALCIUM LEVEL 9.2 MG/DL (8.5-10.1); CARBON DIOXIDE LEVEL 29 MMOL/L (20-31); CHLORIDE LEVEL 105 MMOL/L (98-107); CREATININE FOR GFR 0.82 MG/DL (0.70-1.30); GLOMERULAR FILTRATION RATE > 60.0 (>56); GLUCOSE, FASTING 95 MG/DL (60-100); POTASSIUM SERUM 4.4 MMOL/L (3.5-5.1); SODIUM LEVEL 140 MMOL/L (136-145)
== END ==
LOC: M WUC 08:14
PROVIDERS: ATTEND Family Medicine
DX: R79.82 Elevated C-reactive protein (CRP) (principal); K50.00 Crohn's disease of small intestine without complications

== ENCOUNTER → 2023-07-04 | Outpatient (REF) | payer OTHER | LOC: M LAB REF 18:01 | PROVIDERS: ATTEND Family Medicine | DX: K50.00 Crohn's disease of small intestine without complications (principal); R79.82 Elevated C-reactive protein (CRP); G35 Multiple sclerosis ==

== ENCOUNTER → 2023-07-05 | Outpatient (REF) | payer OTHER | LOC: M LAB REF 10:36 | PROVIDERS: ATTEND Family Medicine | DX: R30.0 Dysuria (principal) ==

== ENCOUNTER → 2023-08-16 | Outpatient (CLI) | payer OTHER ==
[2023-08-16 12:17] LABS: BASO % 0.4 % (0.0-1.0); EOS # 0.1 10^3/uL (0.0-0.5); HEMOGLOBIN 13.7 g/dl (13.5-17.5); LYMPH # 1.8 10^3/uL (1.5-5.0); LYMPH % 24.8 % (24.0-44.0); MEAN CORPUSCULAR HEMOGLOBIN 30.4 pg (27.0-33.0); MEAN CORPUSCULAR HGB CONC 33.4 g/dl (32.0-36.5); MEAN CORPUSCULAR VOLUME 91.1 fl (80.0-96.0); MONO # 0.6 10^3/uL (0.0-0.8); MONO % 7.7 % (2.0-8.0); NEUTROPHILS # 4.7 10^3/uL (1.5-8.5); NEUTROPHILS % 65.4 % (36.0-66.0); PLATELET COUNT, AUTOMATED 286 10^3/uL (150-450); WHITE BLOOD COUNT 7.3 10^3/uL (4.0-10.0)
[2023-08-16 13:12] LABS: ALBUMIN 3.7 G/DL (3.2-5.2); ALKALINE PHOSPHATASE 93 U/L (46-116); ALT/SGPT 23 U/L (7.0-40); AST/SGOT < 8 U/L (<34); BILIRUBIN,TOTAL 0.4 MG/DL (0.3-1.2); BLOOD UREA NITROGEN 15 MG/DL (9-23); CALCIUM LEVEL 9.2 MG/DL (8.5-10.1); CARBON DIOXIDE LEVEL 27 MMOL/L (20-31); CHLORIDE LEVEL 105 MMOL/L (98-107); CREATININE FOR GFR 0.77 MG/DL (0.70-1.30); GLOMERULAR FILTRATION RATE > 60.0 (>56); GLUCOSE, FASTING 92 MG/DL (60-100); HEPATITIS B SURFACE ANTIBODY POSITIVE (POSITIVE); HEPATITIS B SURFACE ANTIGEN NEGATIVE (NEGATIVE); POTASSIUM SERUM 4.5 MMOL/L (3.5-5.1); SODIUM LEVEL 142 MMOL/L (136-145)
[2023-08-17 12:08] LABS: HEPATITIS B CORE ANTIBODY IGG NON-REACTIVE (NON-REACTIVE)
[2023-08-17 13:08] LABS: HEPATITIS A IgG TOTAL REACTIVE (NON-REACTIVE)
[2023-08-20 14:11] LABS: QuantiFERON-TB Gold Plus NEGATIVE (NEGATIVE)
== END ==
LOC: M WUC 10:06
PROVIDERS: ATTEND Internal Medicine Gastroenterology
DX: K50.90 Crohn's disease, unspecified, without complications (principal)

== ENCOUNTER → 2024-05-29 | Outpatient (CLI) | payer OTHER ==
[~2024-05-29] MED LIST changes: -SIME180C25 PO; +SIME1CAP4 PO
[2024-05-29 12:24] LABS: BASO % 0.3 % (0.0-1.0); EOS # 0.1 10^3/uL (0.0-0.5); EOS % 0.6 % (0.0-3.0); HEMATOCRIT 42.5 % (42.0-52.0); HEMOGLOBIN 13.8 g/dl (13.5-17.5); LYMPH # 1.9 10^3/uL (1.5-5.0); LYMPH % 24.9 % (24.0-44.0); MEAN CORPUSCULAR HEMOGLOBIN 29.7 pg (27.0-33.0); MEAN CORPUSCULAR HGB CONC 32.5 g/dl (32.0-36.5); MEAN CORPUSCULAR VOLUME 91.6 fl (80.0-96.0); MONO # 0.6 10^3/uL (0.0-0.8); MONO % 7.8 % (2.0-8.0); NEUTROPHILS # 5.1 10^3/uL (1.5-8.5); NEUTROPHILS % 65.8 % (36.0-66.0); PLATELET COUNT, AUTOMATED 269 10^3/uL (150-450); RED BLOOD COUNT 4.64 10^6/uL (4.30-6.10); WHITE BLOOD COUNT 7.7 10^3/uL (4.0-10.0)
[2024-05-29 13:01] LABS: ALBUMIN 3.6 G/DL (3.2-5.2); ALKALINE PHOSPHATASE 87 U/L (40-129); ALT/SGPT 30 U/L (7.0-40); AST/SGOT 15 U/L (<34); BILIRUBIN,TOTAL 0.4 MG/DL (0.3-1.2); BLOOD UREA NITROGEN 16 MG/DL (9-23); C REACTIVE PROTEIN QUANTITATIV 1.86 MG/DL (<1.0); CALCIUM LEVEL 9.1 MG/DL (8.5-10.1); CARBON DIOXIDE LEVEL 29 MMOL/L (20-31); CHLORIDE LEVEL 104 MMOL/L (98-107); CREATININE FOR GFR 0.66 MG/DL (0.70-1.30); GLOMERULAR FILTRATION RATE > 90.0 (>56); GLUCOSE, FASTING 102 MG/DL (60-100); IRON (FE) 84 UG/DL (65-175); PERCENT SATURATION 29.5 % (19.7-50.0); POTASSIUM SERUM 4.3 MMOL/L (3.5-5.1); SODIUM LEVEL 142 MMOL/L (136-145); TOTAL IRON BINDING CAPACITY 285 UG/DL (250-425); TOTAL PROTEIN 6.9 G/DL (5.7-8.2)
[2024-05-29 13:02] LABS: FERRITIN 101.7 NG/ML (10.5-307.3)
[2024-05-29 13:03] LABS: TOTAL 25(OH) VITAMIN D 67.3 NG/ML (20.0-100.0); VITAMIN B12 LEVEL 701 PG/ML (211-911)
== END ==
LOC: M WUC 10:35
PROVIDERS: ATTEND Internal Medicine Gastroenterology
DX: K50.90 Crohn's disease, unspecified, without complications (principal)

== ENCOUNTER → 2024-12-16 | Outpatient (CLI) | payer OTHER ==
[2024-12-16 14:56] LABS: BASO # 0.0 10^3/uL (0.0-0.2); BASO % 0.3 % (0.0-1.0); EOS # 0.1 10^3/uL (0.0-0.5); EOS % 1.0 % (0.0-3.0); LYMPH # 2.1 10^3/uL (1.5-5.0); LYMPH % 28.8 % (24.0-44.0); MONO # 0.5 10^3/uL (0.0-0.8); MONO % 6.8 % (2.0-8.0); NEUTROPHILS # 4.6 10^3/uL (1.5-8.5); NEUTROPHILS % 62.7 % (36.0-66.0); PLATELET COUNT, AUTOMATED 283 10^3/uL (150-450)
[2024-12-16 15:08] LABS: C REACTIVE PROTEIN QUANTITATIV 0.98 MG/DL (<1.0)
[2024-12-16 15:09] LABS: IRON (FE) 87 UG/DL (65-175); PERCENT SATURATION 29.2 % (19.7-50.0)
[2024-12-16 15:10] LABS: ALT/SGPT 23 U/L (7.0-40); AST/SGOT 19 U/L (<34); CALCIUM LEVEL 9.1 MG/DL (8.5-10.1); CARBON DIOXIDE LEVEL 29 MMOL/L (20-31); CHLORIDE LEVEL 103 MMOL/L (98-107); CREATININE FOR GFR 0.76 MG/DL (0.70-1.30); GLOMERULAR FILTRATION RATE > 90.0 (>56); POTASSIUM SERUM 4.4 MMOL/L (3.5-5.1); SODIUM LEVEL 142 MMOL/L (136-145)
[2024-12-16 15:14] LABS: TOTAL 25(OH) VITAMIN D 70.7 NG/ML (20.0-100.0)
[2024-12-16 15:16] LABS: VITAMIN B12 LEVEL 724 PG/ML (211-911)
== END ==
LOC: M WUC 10:52
PROVIDERS: ATTEND Internal Medicine Gastroenterology
DX: K50.90 Crohn's disease, unspecified, without complications (principal)